=== PATIENT | female | born 1970 | race Caucasian/White ===

== ENCOUNTER 2017-10-09 17:48 | Emergency (ER) | payer OTHER ==
[~2017-10-09] VITALS: Ht 157.5 cm; Wt 78.3 kg
[~2017-10-09 17:48] MED LIST: HYDROCHLOROTH12.5 M3 PO; LISINOPRIL10 MG PO
[2017-10-09 18:33] LABS: HEMATOCRIT 37.6 % (36.0-46.0); MCH 28.8 PG (29.0-34.0); MCHC 32.7 G/DL (30.0-36.0); MCV 88.1 FL (83-99); MEAN PLAT.VOLUME 10.7 uM^3 (9.5-12.4); PLATELET COUNT 296 K/uL (156-360); RBC DIS.WIDTH-CV 11.9 % (11.8-14.6); RBC DIS.WIDTH-SD 38.4 % (39-53); RED BLOOD COUNT 4.27 M/uL (3.80-5.20); WHITE BLOOD COUNT 11.1 K/uL (4.1-10.2)
[2017-10-09 18:41] LABS: CHLORIDE 104 mEq/L (99-109); POTASSIUM 4.1 mEq/L (3.7-5.4); SODIUM 141 mEq/L (136-147)
[2017-10-09 18:44] LABS: GLUCOSE 104 mg/dL (70-99)
[2017-10-09 18:45] LABS: ANION GAP 9 MEQ/L (2-14); TOTAL BILIRUBIN 0.6 mg/dL (0.0-1.0)
[2017-10-09 18:47] LABS: ALKALINE PHOSPHATASE 88 IU/L (3-129); GFR ESTIMATE (CALCULATED) > 59 mL/min/
[2017-10-09 18:48] LABS: UREA NITROGEN (BUN) 10 mg/dL (9-23)
[2017-10-09 19:02] LABS: QUANTITATIVE HCG < 4.0 MIU/ML
[2017-10-09 19:27] LABS: ADD MIUA? YES; BILIRUBIN NEGATIVE; BLOOD SMALL; COLOR YELLOW ((YELLOW)); GLUCOSE (STRIP) NEGATIVE; KETONES NEGATIVE; LEUKOCYTES NEGATIVE; NITRITE NEGATIVE; PROTEIN (STRIP) NEGATIVE; SPECIFIC GRAVITY 1.016 (1.000-1.030); UROBILINOGEN 0.2 MG/DL (0.2-1.0)
[2017-10-09 19:41] LABS: BACTERIA RARE /HPF; EPITHELIAL CELLS 1+ /HPF; MUCUS TRACE /LPF; RED BLOOD CELLS 0-5 /HPF (0-5); UCUL ADDED? NO; WHITE BLOOD CELLS 0-5 /HPF (0-5)
[2017-10-09] MEDS ORDERED: PERCOCET 5/31 TABLET PO (21:51)
[2017-10-09] MEDS ORDERED: FLAGYL500 MG PO (21:51)
[2017-10-09] MEDS ORDERED: CIPRO500 MG PO (21:51)
[2017-10-09] MEDS ORDERED: ZOFRAN ODT4 MG PO (21:51)
[2017-10-09 22:17] VITALS: BP 112/77
== END 2017-10-09 22:19 | disposition home or self-care (01) ==
LOC: EME 17:48
DX: K57.20 Diverticulitis of large intestine with perforation and abscess without bleeding (principal); R11.0 Nausea; K21.9 Gastro-esophageal reflux disease without esophagitis; E05.00 Thyrotoxicosis with diffuse goiter without thyrotoxic crisis or storm; I10 Essential (primary) hypertension; A69.20 Lyme disease, unspecified; Z88.0 Allergy status to penicillin; Z88.8 Allergy status to other drugs, medicaments and biological substances
CPT/HCPCS: 74177; 80053; 81003; 84702; 85027; 99281; 99285; J1885; J2405; J7030

== ENCOUNTER 2018-04-19 09:57 | Day surgery (SDC) | payer OTHER ==
[~2018-04-19] VITALS: Ht 157.5 cm; Wt 78.4 kg
[~2018-04-19 09:57] MED LIST changes: +AMBIEN5 MG PO; +CIPRO500 MG PO; +FLAGYL500 MG PO; +MULTIPLE VITAM1 EAC4 PO; +PERCOCET 5/31 TABLET PO; +TAPAZOLE5 MG PO; +TRANSDERM-SCOP1 EACH TD; +TYLENOL325 M2 PO; +XANAX0.5 MG PO; +ZOFRAN ODT4 MG PO
[2018-04-19 10:54] VITALS: BP 100/59
[2018-04-19 14:57] VITALS: BP 106/79
[2018-04-19 16:00] VITALS: BP 96/67
[2018-04-19 17:15] VITALS: BP 124/78
== END 2018-04-19 17:20 | disposition home or self-care (01) ==
LOC: SDC
PROVIDERS: Surgery Plastic and Reconstructive Surgery
PROC: 0H0T07Z Alteration of Right Breast with Autologous Tissue Substitute, Open Approach (ICD-10-PCS; principal; 2018-04-19)
DX: N65.0 Deformity of reconstructed breast (principal); L90.5 Scar conditions and fibrosis of skin; I10 Essential (primary) hypertension; Z86.19 Personal history of other infectious and parasitic diseases; D64.9 Anemia, unspecified; E05.00 Thyrotoxicosis with diffuse goiter without thyrotoxic crisis or storm; K21.9 Gastro-esophageal reflux disease without esophagitis; Z88.0 Allergy status to penicillin; Z88.1 Allergy status to other antibiotic agents; Z88.5 Allergy status to narcotic agent
CPT/HCPCS: 81025; 93005; J0690; J1100; J1170; J2405